=== PATIENT | female | born 1960 ===

== ENCOUNTER 2023-07-28 12:37 | Emergency (ER) | payer SELFPAY ==
[~2023-07-28] VITALS: Ht 144.8 cm; Wt 53.6 kg
[2023-07-28 12:44] VITALS: TEMP 98.3
[2023-07-28] MEDS: ACETAMINOPHEN 500 MG TABLET PO ONE (13:57)
[2023-07-28 19:26] VITALS: BP 151/76; PULSE 76; RESP 16
== END 2023-07-28 19:37 | disposition home or self-care (01) ==
LOC: EMS 12:41
DX: S60.221A Contusion of right hand, initial encounter (principal); Z88.0 Allergy status to penicillin; V09.9XXA Pedestrian injured in unspecified transport accident, initial encounter; Y93.89 Activity, other specified; Y92.89 Other specified places as the place of occurrence of the external cause; Y99.8 Other external cause status
CPT/HCPCS: 99284; 73090-TC; 73130-TC; Z7502; Z7610